=== PATIENT | female | born 1930 | race Caucasian/White ===

== ENCOUNTER 2019-10-04 20:03 | Inpatient (IN) | payer MEDICARE, MEDICAID ==
[2019-10-04 21:00] LABS: Lactic Acid 1.8 mmol/L (0.5-2.2)
[2019-10-04] MEDS ORDERED: Ondansetron PF 4 MG/2 ML Vial IVP PRN (21:24)
[2019-10-04] MEDS ORDERED: Acetaminophen 325 MG TAB PO PRN (21:24)
[2019-10-04] MEDS ORDERED: Ondansetron ODT 4 MG TAB PO PRN (21:24)
[2019-10-04] MEDS ORDERED: Baclofen 10 MG TAB PO PRN (21:27)
[2019-10-04] MEDS ORDERED: HumaLOG 300 UNITS/3 ML VIAL SC PRN (21:29)
[2019-10-04] MEDS ORDERED: Dextrose 50% Abboject 50 ML SYRINGE SLOW IVP PRN (21:29)
[2019-10-04] MEDS ORDERED: Dextrose 5% in Water 1,000 ML IV PRN (21:29)
[2019-10-04 22:05] VITALS: BMI 27.7
--- NOTE | 2019-10-04 22:15 | HP ---
CHIEF COMPLAINT: Altered mental status. HISTORY OF PRESENT ILLNESS: This patient is an 89-year-old female, who has a history of CVA with left-sided hemiplegia and aphasia, who apparently was difficult to awaken at the [facility] from when she came. The patient was ultimately able to be fully awakened and was at her baseline mental status, however, she was referred to the emergency department for further evaluation. The patient is unable to give any additional history. Her n.p.o. aid, Andreea Gonzalez, was here and confirmed the patient is DNAR and paperwork was signed and confirmed that the patient is at her usual mental status presently. All information is being obtained from the patient record as the patient is unable to give any additional history. The patient was initially presented to the [facility] and was transferred here due to lack of bed capacity there. The workup was indicative of urinary tract infection. The patient does have a chronic indwelling Bonilla catheter. REVIEW OF SYSTEMS: Unobtainable. PAST MEDICAL HISTORY: Notable for asthma, dementia, history of the above-mentioned CVA with left hemiplegia, depression, diabetes mellitus type 2, GERD, hypertension. She appears to have hyperlipidemia based on her medications as well. Peripheral vascular disease, dysphagia, and aphasia. PAST SURGICAL HISTORY: Left mastectomy. SOCIAL HISTORY: The patient's n.p.o. apparently told the ER that she has no history of tobacco abuse. She is not present currently to confirm. ALLERGIES: NONE. CURRENT MEDICATIONS: 1. Atorvastatin 10 mg p.o. daily. 2. Glipizide 5 mg daily. 3. Baclofen 10 mg, regimen not known. 4. Metoprolol 25 mg at bedtime. 5. Famotidine 10 mg apparently daily, but that cannot be confirmed on this record either. PHYSICAL EXAMINATION: VITAL SIGNS: Currently BP 141/66, pulse 88, temperature 98.2, O2 saturation 99% on room air. GENERAL: The patient is awake and alert. She makes eye contact and is tracking. Otherwise, she is sitting essentially rubbing her chin with her right index finger rhythmically, but has no other involuntary movement and does not cooperate with the exam, but does not resist exam either. HEENT: Pupils are equal and reactive. She will not open her mouth for exam. NECK: Supple and symmetric. HEART: Regular rate and rhythm without murmurs, gallops, or rubs. LUNGS: Clear to auscultation bilaterally. ABDOMEN: Soft, nontender, and nondistended. Positive bowel sounds. No masses. No organomegaly. EXTREMITIES: No cyanosis, clubbing, or edema. NEUROLOGICAL: She does appear to be more flaccid on her left side. She is moving her right upper extremity deliberately involuntarily. PSYCH: Cannot be further assessed. Of note, the patient does have indwelling Bonilla catheter. Review of the patient's vital signs from the emergency department did indicate a temperature of 100.0. Note, the patient's nurse here did indicate she had a stage III decubitus in the sacral area. This was not specifically examined by me at this time. It appears that there is a 1 cm open area over the coccyx documented in the emergency department. Her EKG per the ER record shows sinus rhythm with ventricular rate of 84 beats per minute, some nonspecific ST abnormalities that were not concerning for ischemic changes. LABORATORY DATA: White count 13.2, hemoglobin 12.0, and platelets 315. CMP; sodium 140, potassium 4.4, chloride 105, CO2 of 27, anion gap 12, glucose 204, BUN 18, creatinine 0.9, GFR 63, total protein 7.1, albumin 2.5, calcium 8.9, total bilirubin 0.2, AST 21, ALT 26, alkaline phosphatase 98. CK 39, CK-MB 0.5, troponin less than 0.017. Urinalysis shows urine that was cloudy, some blood present, some protein present, leukocyte esterase positive, 31-50 red cells, 31-50 white cells, with 6-10 squamous epithelia and 3+ bacteria. Lactic acid was 2.3. Flu screen negative. Chest x-ray is negative. HOSPITAL COURSE: The patient received a liter of fluids and a dose of Levaquin, and was transferred to this facility. IMPRESSION AND PLAN: 1. Urinary tract infection in a debilitated patient with chronic indwelling Bonilla catheter. The patient has some evidence of urinary tract infection in her urine, but that is likely chronic. She has a minimally elevated white blood cell count and low-grade fever without other obvious source of infection. Therefore, this certainly may represent true infection. She received a dose of Levaquin at the other facility and has Rocephin hanging now, as well as vancomycin dose pending. Unclear to me where those orders were initiated, but suspect that might have occurred when she arrived to the emergency department here, although again not able to confirm that. She will continue to receive Rocephin and will follow up on the urine cultures from the [facility]. 2. History of cerebrovascular accident with aphasia, left-sided weakness, and dysphagia. We will give her modified diet based on previous orders with thickened liquids and pureed foods. 3. Diabetes mellitus. Accu-Cheks, sliding scale, diabetic diet. Resume her glipizide. 4. Hypertension. Continue metoprolol. 5. Hyperlipidemia. Continue atorvastatin. 6. Sacral decubitus, stage III. Wound care team consult. Reviewing the record, there is a sheet from the [facility] indicating that was a diagnosis for her from there as well. 7. Chronic dementia, stable. 8. The patient is DNAR with paperwork completed. Job ID: [id number]
[2019-10-04] MEDS: cefTRIAXone\\ROCEPHIN 1 GM in Sodium Chloride 0.9% 100 ML IVPB SCH (22:32)
[2019-10-04] MEDS: Sodium Chloride 0.9% 1,000 ML IV SCH (22:32)
[2019-10-05 06:08] LABS: #Basophils 0.1 thou/uL (0.0-0.2); #Eosinphils 0.3 thou/uL (0.0-0.7); #Lymphocytes 3.1 thou/uL (1.20-3.40); #Monocytes 0.8 thou/uL (0.11-0.59); %Basophils 0.7 % (0.0-1.0); %Eosinophils 2.3 % (0.0-10.0); %Lymphocytes 25.4 % (21.0-51.0); %Monocytes 6.5 % (0.0-10.0); %Neutrophils 65.1 % (42.0-75.0); Hemoglobin 11.8 g/dL (12.0-16.0); Mean Corpuscular Hemoglobin 29.4 pg (27.0-31.0); Mean Platelet Volume 7.2 fL (7.4-10.4); Platelet Count 294 thou/uL (130-400); RBC Distribution Width 13.6 % (11.5-14.5); White Blood Cell (WBC) Count 12.3 thou/uL (4.8-10.8)
[2019-10-05 06:27] LABS: Anion Gap 12 mmol/L (10-20); BUN (Urea Nitrogen) 11 mg/dL (9.8-20.1); Calc. Creatinine Clearance 74 mL/min (70-130); Calcium 8.6 mg/dL (7.8-10.44); Carbon Dioxide 27 mmol/L (23-31); Chloride 107 mmol/L (98-107); Estimated GFR-MDRD 83; Glucose 99 mg/dL (83-110); Potassium 4.1 mmol/L (3.5-5.1); Sodium 142 mmol/L (136-145)
[2019-10-05] MEDS: Enoxaparin Sodium 40 MG/0.4 ML SYRINGE SC SCH (08:33)
[2019-10-05] MEDS: Famotidine 20 MG TAB PO SCH (08:33)
[2019-10-05] MEDS: Sodium Chloride 0.9% 1,000 ML IV SCH ×2 (08:45→22:49)
--- NOTE | 2019-10-05 19:15 | PDOC.HOSPP ---
- Subjective Encounter Date: 10/05/19 Encounter Time: 19:05 Subjective: f/u for AMS, UTI on Rocephin. Apparently dementia at baseline residing at [facility]. No new issues reported. - Objective Vital Signs & Weight: Vital Signs (12 hours) Temp Pulse Resp BP Pulse Ox 10/05/19 16:00 98.6 F 91 20 163/70 H 96 10/05/19 08:00 98.2 F 85 18 152/78 H 97 Weight Weight 182 lb 8 oz I&O: 10/04/19 10/05/19 10/06/19 06:59 06:59 06:59 Intake Total 1900 Output Total 750 2000 Balance -750 -100 Result Diagrams: 10/05/19 05:59 10/05/19 05:59 Additional Labs: Accuchecks 10/05/19 10/05/19 16:33 12:02 POC Glucose 180 H 130 H Hospitalist ROS - Medication Medications: Active Medications Generic Name Dose Route Start Last Admin Trade Name Freq PRN Reason Stop Dose Admin Enoxaparin Sodium 40 mg 10/05/19 09:00 10/05/19 08:33 Lovenox SC 40 mg 0900 DAMIAN Administration Famotidine 20 mg 10/05/19 09:00 10/05/19 08:33 Pepcid PO 20 mg DAILY DAMIAN Administration Glipizide 5 mg 10/05/19 08:00 10/05/19 08:34 Glucotrol Xl PO 5 mg QAM-WM DAMIAN Administration Sodium Chloride 1,000 mls @ 75 mls/hr 10/04/19 22:30 10/05/19 08:45 Normal Saline 0.9% IV 1,000 mls .[id number] DAMIAN Administration Ceftriaxone Sodium 1 gm/ 100 mls @ 200 mls/hr 10/04/19 23:00 10/04/19 22:32 Sodium Chloride IVPB 100 mls 2300 DAMIAN Administration - Exam General Appearance: NAD General - other findings: mumbles one, two words, stares out the window Eye: PERRL, anicteric sclera ENT: normocephalic atraumatic, no oropharyngeal lesions Neck: supple, symmetric, no JVD, no thyromegaly Heart: RRR, no murmur, no gallops, no rubs Respiratory: CTAB, no wheezes, no rales, no ronchi Gastrointestinal: soft, non-tender, non-distended, normal bowel sounds Extremities: no cyanosis, no clubbing, no edema Skin: normal turgor, no lesions Neurological: no new deficit Neurological - other findings: resting tremor R hand Musculoskeletal: generalized weakness Psychiatric: oriented to person, flat affect Hosp A/P (1) UTI (urinary tract infection) Status: Acute Plan: Continue Rocephin, await sasha Ucx result, continue IVF's (2) Acute metabolic encephalopathy Code(s): G93.41 - METABOLIC ENCEPHALOPATHY Status: Acute Plan: Likely due to #1, appears near baseline mental status (3) Chronic indwelling Bonilla catheter Code(s): Z96.0 - PRESENCE OF UROGENITAL IMPLANTS Status: Chronic Plan: Likely UTI due to indwelling catheter, await final Ucx results (4) DM II (diabetes mellitus, type II), controlled Code(s): E11.9 - TYPE 2 DIABETES MELLITUS WITHOUT COMPLICATIONS Status: Chronic Plan: Resume home DM regimen, serial accuchecks (5) Sacral decubitus ulcer, stage III Code(s): L89.153 - PRESSURE ULCER OF SACRAL REGION, STAGE 3 Status: Chronic Plan: Present prior to admission, WCT, turning protocol, local care - Plan continue antibiotics, social media strategist, speech therapy, DVT proph w/SCDs Stable currently continue Rocephin daily Continue IVF's Await final Ucx results AM lab: BMP, CBC
[2019-10-05] MEDS: Baclofen 10 MG TAB PO SCH (20:32)
[2019-10-05] MEDS: Metoprolol Tartrate 25 MG TAB PO SCH (20:32)
[2019-10-05] MEDS ORDERED: Atorvastatin Calcium 10 MG TAB PO SCH (21:00)
[2019-10-05] MEDS: cefTRIAXone\\ROCEPHIN 1 GM in Sodium Chloride 0.9% 100 ML IVPB SCH (22:43)
[2019-10-06 06:29] LABS: Band 9 % (5-11); Hemoglobin 11.8 g/dL (12.0-16.0); Lymphocytes 25 % (21-51); MDiff Complete? YES; Mean Corpuscular HGB CONC 32.5 g/dL (32.0-36.0); Mean Corpuscular Hemoglobin 28.5 pg (27.0-31.0); Mean Corpuscular Volume 87.7 fL (78.0-98.0); Mean Platelet Volume 7.1 fL (7.4-10.4); Monocytes 1 % (0-10); Neutrophil 65 % (42-75); Platelet Count 305 thou/uL (130-400); RBC Distribution Width 13.6 % (11.5-14.5); Red Blood Cell (RBC) Count 4.14 mill/uL (4.20-5.40); White Blood Cell (WBC) Count 11.5 thou/uL (4.8-10.8)
[2019-10-06 06:39] LABS: Anion Gap 12 mmol/L (10-20); BUN (Urea Nitrogen) 8 mg/dL (9.8-20.1); Calc. Creatinine Clearance 77 mL/min (70-130); Calcium 8.5 mg/dL (7.8-10.44); Carbon Dioxide 25 mmol/L (23-31); Chloride 104 mmol/L (98-107); Estimated GFR-MDRD 86; Glucose 133 mg/dL (83-110); Potassium 4.3 mmol/L (3.5-5.1); Sodium 137 mmol/L (136-145)
[2019-10-06] MEDS: Atorvastatin Calcium 10 MG TAB PO SCH (08:53)
[2019-10-06] MEDS: Metoprolol Tartrate 25 MG TAB PO SCH ×2 (08:54→20:42)
[2019-10-06] MEDS: Famotidine 20 MG TAB PO SCH (08:54)
[2019-10-06] MEDS: Baclofen 10 MG TAB PO SCH ×3 (08:54→20:42)
[2019-10-06] MEDS: Enoxaparin Sodium 40 MG/0.4 ML SYRINGE SC SCH (08:55)
[2019-10-06] MEDS: Sodium Chloride 0.9% 1,000 ML IV SCH (09:01)
[2019-10-06] MEDS: Vancomycin HCl 1 GM in Premix Bag 1 BAG IVPB SCH ×2 (10:55→23:46)
--- NOTE | 2019-10-06 11:23 | PDOC.HOSPP ---
- Subjective Encounter Date: 10/06/19 Encounter Time: 11:15 Subjective: f/u for AMS, UTI and gm+ cocci in 2/2 blood cx. Receiving Rocephin currently. No new changes reported per nursing. - Objective Vital Signs & Weight: Vital Signs (12 hours) Temp Pulse Resp BP Pulse Ox 10/06/19 08:11 98.0 F 76 18 145/70 H 99 Weight Weight 182 lb 8 oz I&O: 10/05/19 10/06/19 10/07/19 06:59 06:59 06:59 Intake Total 1900 Output Total 750 2000 Balance -750 -100 Result Diagrams: 10/06/19 06:08 10/06/19 06:08 Additional Labs: Accuchecks 10/06/19 10/05/19 10/05/19 04:16 20:53 16:33 POC Glucose 143 H 176 H 180 H 10/05/19 12:02 POC Glucose 130 H Hospitalist ROS - Medication Medications: Active Medications Generic Name Dose Route Start Last Admin Trade Name Freq PRN Reason Stop Dose Admin Atorvastatin Calcium 10 mg 10/06/19 09:00 10/06/19 08:53 Lipitor PO 10 mg DAILY DAMIAN Administration Baclofen 10 mg 10/05/19 21:00 10/06/19 08:54 Lioresal PO 10 mg TID DAMIAN Administration Enoxaparin Sodium 40 mg 10/05/19 09:00 10/06/19 08:55 Lovenox SC 40 mg 0900 DAMIAN Administration Famotidine 20 mg 10/05/19 09:00 10/06/19 08:54 Pepcid PO 20 mg DAILY DAMIAN Administration Glipizide 5 mg 10/05/19 08:00 10/06/19 09:01 Glucotrol Xl PO 5 mg QAM-WM DAMIAN Administration Sodium Chloride 1,000 mls @ 75 mls/hr 10/04/19 22:30 10/06/19 09:01 Normal Saline 0.9% IV 1,000 mls .[id number] DAMIAN Administration Ceftriaxone Sodium 1 gm/ 100 mls @ 200 mls/hr 10/04/19 23:00 10/05/19 22:43 Sodium Chloride IVPB 100 mls 2300 DAMIAN Administration Vancomycin HCl 1 gm/ Device 200 mls @ 200 mls/hr 10/06/19 11:00 10/06/19 10: 55 IVPB 200 mls 1100,2300 DAMIAN Administration Metoprolol Tartrate 25 mg 10/05/19 21:00 10/06/19 08:54 Lopressor PO 25 mg BID DAMIAN Administration - Exam General Appearance: awake alert General - other findings: nods head to questions, non-verbal Eye: PERRL, anicteric sclera ENT: normocephalic atraumatic, no oropharyngeal lesions Neck: supple, symmetric, no JVD, no thyromegaly Heart: RRR, no murmur, no gallops, no rubs, normal peripheral pulses Respiratory: CTAB, no wheezes, no rales, no ronchi Gastrointestinal: soft, non-tender, non-distended, normal bowel sounds Extremities: no cyanosis, no clubbing, no edema Skin: normal turgor, no lesions Neurological: no new deficit Musculoskeletal: generalized weakness Psychiatric: oriented to person Hosp A/P (1) UTI (urinary tract infection) Status: Acute Plan: Suspected, continue Rocephin, await final Ucx results (2) Bacteremia due to Gram-positive bacteria Code(s): R78.81 - BACTEREMIA Status: Acute Plan: Await final identification, add Vancomycin 1gm IV q12h (3) Acute metabolic encephalopathy Code(s): G93.41 - METABOLIC ENCEPHALOPATHY Status: Acute Plan: ? baseline, continue to follow with tx outlined above (4) Chronic indwelling Bonilla catheter Code(s): Z96.0 - PRESENCE OF UROGENITAL IMPLANTS Status: Chronic (5) DM II (diabetes mellitus, type II), controlled Code(s): E11.9 - TYPE 2 DIABETES MELLITUS WITHOUT COMPLICATIONS Status: Chronic Plan: ISS, continue Glipizide, ADA (6) Sacral decubitus ulcer, stage III Code(s): L89.153 - PRESSURE ULCER OF SACRAL REGION, STAGE 3 Status: Chronic Plan: WCT, local care, turning protocol - Plan continue antibiotics, addiction social worker, DVT proph w/SCDs Stable currently continue Rocephin daily Add Vancomycin 1gm IV q12h Await final Ucx/Blood cx results(from [facility]) Continue IVF's WCT with local care Code Status: DNAR
[2019-10-06] MEDS: cefTRIAXone\\ROCEPHIN 1 GM in Sodium Chloride 0.9% 100 ML IVPB SCH (22:29)
[2019-10-07] MEDS: Sodium Chloride 0.9% 1,000 ML IV SCH ×3 (05:24→23:49)
[2019-10-07] MEDS: Atorvastatin Calcium 10 MG TAB PO SCH (08:29)
[2019-10-07] MEDS: Baclofen 10 MG TAB PO SCH ×3 (08:29→20:02)
[2019-10-07] MEDS: Metoprolol Tartrate 25 MG TAB PO SCH ×2 (08:29→20:02)
[2019-10-07] MEDS: Famotidine 20 MG TAB PO SCH (08:29)
[2019-10-07] MEDS: Vancomycin HCl 1 GM in Premix Bag 1 BAG IVPB SCH ×2 (08:30→23:48)
[2019-10-07] MEDS: Enoxaparin Sodium 40 MG/0.4 ML SYRINGE SC SCH (08:30)
--- NOTE | 2019-10-07 13:11 | PDOC.HOSPP ---
- Subjective Encounter Date: 10/07/19 Encounter Time: 12:15 Subjective: Expresses no complaint.. feels better. - Objective Vital Signs & Weight: Vital Signs (12 hours) Temp Pulse Resp BP Pulse Ox 10/07/19 07:58 98 F 98 20 147/78 H 95 Weight Admit Weight 182 lb 8 oz Weight 182 lb 8 oz I&O: 10/06/19 10/07/19 10/08/19 06:59 06:59 06:59 Intake Total 1900 1200 Output Total 1999 4500 Balance -100 -3300 Result Diagrams: 10/06/19 06:08 10/06/19 06:08 Additional Labs: Accuchecks 10/07/19 10/07/19 10/06/19 11:59 05:47 20:59 POC Glucose 170 H 160 H 202 H 10/06/19 15:57 POC Glucose 153 H Hospitalist ROS - Medication Medications: Active Medications Generic Name Dose Route Start Last Admin Trade Name Freq PRN Reason Stop Dose Admin Atorvastatin Calcium 10 mg 10/06/19 09:00 10/07/19 08:29 Lipitor PO 10 mg DAILY DAMIAN Administration Baclofen 10 mg 10/05/19 21:00 10/07/19 08:29 Lioresal PO 10 mg TID DAMIAN Administration Enoxaparin Sodium 40 mg 10/05/19 09:00 10/07/19 08:30 Lovenox SC 40 mg 0900 DAMIAN Administration Famotidine 20 mg 10/05/19 09:00 10/07/19 08:29 Pepcid PO 20 mg DAILY DAMIAN Administration Glipizide 5 mg 10/05/19 08:00 10/07/19 08:30 Glucotrol Xl PO 5 mg QAM-WM DAMIAN Administration Sodium Chloride 1,000 mls @ 75 mls/hr 10/04/19 22:30 10/07/19 08:33 Normal Saline 0.9% IV 1,000 mls .[id number] DAMIAN Administration Ceftriaxone Sodium 1 gm/ 100 mls @ 200 mls/hr 10/04/19 23:00 10/06/19 22:29 Sodium Chloride IVPB 100 mls 2300 DAMIAN Administration Vancomycin HCl 1 gm/ Device 200 mls @ 200 mls/hr 10/06/19 11:00 10/07/19 08: 30 IVPB 200 mls 1100,2300 DAMIAN Administration Metoprolol Tartrate 25 mg 10/05/19 21:00 10/07/19 08:29 Lopressor PO 25 mg BID DAMIAN Administration - Exam Neck: no JVD Heart: RRR Respiratory: CTAB Gastrointestinal: soft Extremities: no edema Neurological: no weakness Psychiatric: normal affect Hosp A/P (1) Bacteremia due to Gram-positive bacteria Code(s): R78.81 - BACTEREMIA Status: Acute Plan: Coagulase negative Staph.. ?contamiation.. Get ID input. (2) UTI (urinary tract infection) Status: Acute (3) Chronic indwelling Bonilla catheter Code(s): Z96.0 - PRESENCE OF UROGENITAL IMPLANTS Status: Chronic (4) DM II (diabetes mellitus, type II), controlled Code(s): E11.9 - TYPE 2 DIABETES MELLITUS WITHOUT COMPLICATIONS Status: Chronic (5) Sacral decubitus ulcer, stage III Code(s): L89.153 - PRESSURE ULCER OF SACRAL REGION, STAGE 3 Status: Chronic - Plan ID to evaluate. Continue antibiotics, wound care.
[2019-10-07] MEDS: cefTRIAXone\\ROCEPHIN 1 GM in Sodium Chloride 0.9% 100 ML IVPB SCH (22:24)
[2019-10-07 23:01] LABS: Vancomycin, Trough 17.1 ug/mL
[2019-10-08] MEDS: Famotidine 20 MG TAB PO SCH (08:11)
[2019-10-08] MEDS: Baclofen 10 MG TAB PO SCH ×3 (08:11→21:15)
[2019-10-08] MEDS: Atorvastatin Calcium 10 MG TAB PO SCH (08:11)
[2019-10-08] MEDS: Enoxaparin Sodium 40 MG/0.4 ML SYRINGE SC SCH (08:11)
[2019-10-08] MEDS: Metoprolol Tartrate 25 MG TAB PO SCH ×2 (08:11→21:16)
[2019-10-08] MEDS: Vancomycin HCl 1 GM in Premix Bag 1 BAG IVPB SCH (11:01)
--- NOTE | 2019-10-08 12:54 | PDOC.HOSPP ---
- Subjective Encounter Date: 10/08/19 Encounter Time: 12:00 Subjective: No new complaint.. - Objective Vital Signs & Weight: Vital Signs (12 hours) Temp Pulse Resp BP Pulse Ox 10/08/19 08:00 96 10/08/19 07:44 98.1 F 74 14 165/75 H 96 Weight Admit Weight 182 lb 8 oz Weight 182 lb 8 oz I&O: 10/07/19 10/08/19 10/09/19 06:59 06:59 06:59 Intake Total 1200 1200 Output Total 4500 1900 Balance -3300 -700 Result Diagrams: 10/06/19 06:08 10/06/19 06:08 Additional Labs: Accuchecks 10/08/19 10/08/19 10/07/19 11:09 06:10 22:45 POC Glucose 134 H 152 H 194 H 10/07/19 16:41 POC Glucose 213 H Hospitalist ROS - Medication Medications: Active Medications Generic Name Dose Route Start Last Admin Trade Name Freq PRN Reason Stop Dose Admin Atorvastatin Calcium 10 mg 10/06/19 09:00 10/08/19 08:11 Lipitor PO 10 mg DAILY DAMIAN Administration Baclofen 10 mg 10/05/19 21:00 10/08/19 08:11 Lioresal PO 10 mg TID DAMIAN Administration Enoxaparin Sodium 40 mg 10/05/19 09:00 10/08/19 08:11 Lovenox SC 40 mg 0900 DAMIAN Administration Famotidine 20 mg 10/05/19 09:00 10/08/19 08:11 Pepcid PO 20 mg DAILY DAMIAN Administration Glipizide 5 mg 10/05/19 08:00 10/08/19 08:10 Glucotrol Xl PO 5 mg QAM-WM DAMIAN Administration Sodium Chloride 1,000 mls @ 75 mls/hr 10/04/19 22:30 10/07/19 23:49 Normal Saline 0.9% IV 1,000 mls .[id number] DAMIAN Administration Ceftriaxone Sodium 1 gm/ 100 mls @ 200 mls/hr 10/04/19 23:00 10/07/19 22:24 Sodium Chloride IVPB 100 mls 2300 DAMIAN Administration Vancomycin HCl 1 gm/ Device 200 mls @ 200 mls/hr 10/06/19 11:00 10/08/19 11: 01 IVPB 200 mls 1100,2300 DAMIAN Administration Insulin Human Lispro 0 units 10/04/19 21:29 10/07/19 17:16 Humalog SC 3 unit .MILD SLIDING SCALE PRN Administration Mild Correctional Scale Metoprolol Tartrate 25 mg 10/05/19 21:00 10/08/19 08:11 Lopressor PO 25 mg BID DAMIAN Administration - Exam General Appearance: NAD Eye: anicteric sclera Neck: no JVD Heart: RRR Respiratory: CTAB Gastrointestinal: soft Extremities: no edema Neurological: no weakness Hosp A/P (1) Bacteremia due to Gram-positive bacteria Code(s): R78.81 - BACTEREMIA Status: Acute Plan: With coagulase negative staph.. ?contamination. ID to see. (2) UTI (urinary tract infection) Status: Acute Plan: On antibiotics.. (3) Chronic indwelling Bonilla catheter Code(s): Z96.0 - PRESENCE OF UROGENITAL IMPLANTS Status: Chronic (4) DM II (diabetes mellitus, type II), controlled Code(s): E11.9 - TYPE 2 DIABETES MELLITUS WITHOUT COMPLICATIONS Status: Chronic Plan: BS satisfactory.. (5) Sacral decubitus ulcer, stage III Code(s): L89.153 - PRESSURE ULCER OF SACRAL REGION, STAGE 3 Status: Chronic Plan: Wound care.. - Plan Continue antibiotics, wound care. ID to evaluate regarding coagulase negative staph bacteremia.. Continue current therapy.
[2019-10-08] MEDS: Sodium Chloride 0.9% 1,000 ML IV SCH (21:14)
--- NOTE | 2019-10-08 21:27 | CON ---
DATE OF CONSULTATION: 10/08/2019 REASON FOR CONSULTATION: Evaluate the meaning of blood culture results. HISTORY OF PRESENT ILLNESS: An 89-year-old, history of dementia, most likely vascular dementia with chronic left hemiplegia following CVA, type 2 diabetes, hypertension, who is a [facility] at a local [facility] and was transferred over here because of altered mental status. Specifically, she was hard to awaken at [facility]. Eventually, she recovered her mental state and was admitted. Initial findings, BP 140/60, pulse 88, temperature 98.2. She made eye contact and had a dense left hemiplegia. Overall exam was otherwise not particularly remarkable. Initial findings included a white cell count of 11.5, hemoglobin 11.8, platelets 305 with a normal differential and glucose 133. Sodium 137, creatinine 0.65. The patient had urine submitted with positive for Enterococcus faecalis. I do not see a urinalysis submitted though. There is one set of blood cultures with coagulase negative Staphylococcus. Currently, Ms. Walker is awake. She will follow some commands after some insistence. Her review of systems is quite limited because of her cognitive dysfunction. She has not had diarrhea. No evidence of aspiration and she has indwelling Bonilla catheter which was inserted on admission. PAST MEDICAL HISTORY: Asthma, vascular dementia, prior CVA with dense left hemiplegia, type 2 diabetes, GERD, hypertension. PAST SURGICAL HISTORY: Mastectomy. SOCIAL HISTORY: She is a resident at [facility]. ALLERGIES: NONE. CURRENT MEDICATIONS: 1. Tylenol. 2. Lipitor. 4. Ceftriaxone. 5. Lovenox. 6. Pepcid. 7. Glucotrol. 8. Insulin. 9. Lopressor. 10. Zofran. 11. Vancomycin. PHYSICAL EXAMINATION: GENERAL: She has been afebrile throughout the hospital stay. There is a little bit of erythema in the distal left hallux skin with onychodystrophy, possible onychomycosis and there is a stage II area of ulceration of surrounding erythema in the left presacral region. She has a peripheral IV access and has a Bonilla catheter in place. HEENT: She will briefly establish eye contact, but for the most part, not much interaction with the examiner. No lymphadenopathy. The sclerae are white. Pupils are constricted. Oral cavity with no [place] teeth remaining, somewhat dry oral mucosa. No lesions. No jugular vein distention. LUNGS: With symmetric clear breath sounds. HEART: S1, S2. Regular rate. No S3 or S4. ABDOMEN: Soft without distention. No guarding. No organomegaly. 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 NEUROLOGIC: Dense left hemiplegia with contractures. She is able to move the right side. Plantar responses are flexor on the right and different on the left. No clonus. She is awake, but will answer in brief, with monosyllabic answers to questions, very limited ability to interact. Unable to answer in more complete sentences about her past medical history or other details of her history. LABORATORY DATA: Has been reviewed above. She has one set of blood cultures with coagulase negative Staphylococcus other than Staph epidermidis and lugdunensis by oneDrumigene nucleic acid test. ASSESSMENT: Type 2 diabetes, prior cerebrovascular accident, vascular dementia, left hemiparesis, reported change in mental state, which led to admission and one set of blood cultures positive for coagulase-negative Staphylococcus. DISCUSSION: The results of the blood cultures reflect contamination of the sample rather than a true bacteremia and therefore I would advise against treating this finding. Typically, those cultures were obtained in the emergency room and usually one set positive. In patients without devices, the vast majority of those blood cultures are considered to be a contaminant and do not merit treatment. Job ID: [id number] MTDD
[2019-10-09] MEDS: Sodium Chloride 0.9% 1,000 ML IV SCH (05:31)
[2019-10-09] MEDS: Enoxaparin Sodium 40 MG/0.4 ML SYRINGE SC SCH (08:47)
[2019-10-09] MEDS: Metoprolol Tartrate 25 MG TAB PO SCH ×2 (08:47→21:42)
[2019-10-09] MEDS: Atorvastatin Calcium 10 MG TAB PO SCH (08:47)
[2019-10-09] MEDS: Baclofen 10 MG TAB PO SCH ×3 (08:47→21:42)
[2019-10-09] MEDS: Famotidine 20 MG TAB PO SCH (08:47)
--- NOTE | 2019-10-09 12:13 | PDOC.HOSPP ---
- Subjective Encounter Date: 10/09/19 Encounter Time: 11:00 Subjective: Expresses no complaint. - Objective Vital Signs & Weight: Vital Signs (12 hours) Temp Pulse Resp BP Pulse Ox 10/09/19 08:00 97.7 F 68 20 155/71 H 95 Weight Admit Weight 182 lb 8 oz Weight 182 lb 8 oz I&O: 10/08/19 10/09/19 10/10/19 06:59 06:59 06:59 Intake Total 1200 2450 Output Total 1900 1975 Balance -700 475 Result Diagrams: 10/06/19 06:08 10/06/19 06:08 Additional Labs: Accuchecks 10/09/19 10/09/19 10/08/19 11:44 05:16 21:07 POC Glucose 175 H 135 H 258 H 10/08/19 16:22 POC Glucose 158 H Hospitalist ROS - Medication Medications: Active Medications Generic Name Dose Route Start Last Admin Trade Name Freq PRN Reason Stop Dose Admin Atorvastatin Calcium 10 mg 10/06/19 09:00 10/09/19 08:47 Lipitor PO 10 mg DAILY DAMIAN Administration Baclofen 10 mg 10/05/19 21:00 10/09/19 08:47 Lioresal PO 10 mg TID DAMIAN Administration Enoxaparin Sodium 40 mg 10/05/19 09:00 10/09/19 08:47 Lovenox SC 40 mg 0900 DAMIAN Administration Famotidine 20 mg 10/05/19 09:00 10/09/19 08:47 Pepcid PO 20 mg DAILY DAMIAN Administration Glipizide 5 mg 10/05/19 08:00 10/09/19 08:47 Glucotrol Xl PO 5 mg QAM-WM DAMIAN Administration Sodium Chloride 1,000 mls @ 75 mls/hr 10/04/19 22:30 10/09/19 05:31 Normal Saline 0.9% IV 1,000 mls .[id number] DAMIAN Administration Insulin Human Lispro 0 units 10/04/19 21:29 10/07/19 17:16 Humalog SC 3 unit .MILD SLIDING SCALE PRN Administration Mild Correctional Scale Metoprolol Tartrate 25 mg 10/05/19 21:00 10/09/19 08:47 Lopressor PO 25 mg BID DAMIAN Administration - Exam Neck: no JVD Heart: RRR Respiratory: CTAB Gastrointestinal: soft Extremities: no edema Hosp A/P (1) Bacteremia due to Gram-positive bacteria Code(s): R78.81 - BACTEREMIA Status: Acute Plan: Due to contamination... (2) UTI (urinary tract infection) Status: Acute (3) Chronic indwelling Bonilla catheter Code(s): Z96.0 - PRESENCE OF UROGENITAL IMPLANTS Status: Chronic (4) DM II (diabetes mellitus, type II), controlled Code(s): E11.9 - TYPE 2 DIABETES MELLITUS WITHOUT COMPLICATIONS Status: Chronic (5) Sacral decubitus ulcer, stage III Code(s): L89.153 - PRESSURE ULCER OF SACRAL REGION, STAGE 3 Status: Chronic - Plan Continue antibiotics for UTI.., Continue wound care. Coagulase negative staph bacteremia due to contamination... Continue current therapy. Possible discharge soon..
[2019-10-10] MEDS: Sodium Chloride 0.9% 1,000 ML IV SCH (05:35)
[2019-10-10 07:57] VITALS: BP 146/74; TEMP 97
[2019-10-10] MEDS: Atorvastatin Calcium 10 MG TAB PO SCH (08:50)
[2019-10-10] MEDS: Famotidine 20 MG TAB PO SCH (08:51)
[2019-10-10] MEDS: Baclofen 10 MG TAB PO SCH ×2 (08:51→16:28)
[2019-10-10] MEDS: Enoxaparin Sodium 40 MG/0.4 ML SYRINGE SC SCH (08:51)
[2019-10-10] MEDS: Metoprolol Tartrate 25 MG TAB PO SCH (08:51)
--- NOTE | 2019-10-14 05:24 | PQF ---
RUBINRAUL STANLEY WHITE MD [id number] CLINICAL DOCUMENTATION CLARIFICATION FORM: POST DISCHARGE Addendum to original discharge summary date: ____ Late entry note date: __ DATE: 10/14/2018 ATTN:STANLEY SILVA MD Please exercise your independent, professional judgment in responding to the clarification form. Clinical indicators are provided on the bottom of this form for your review Please check appropriate box(s): [ ] UTI due to Chronic indwelling catheter [ ] UTI not due to Chronic indwelling catheter [ x ] Other diagnosis Non-infectious Bacteriuria [ ] Unable to determine CLINICAL INDICATORS - SIGNS / SYMPTOMS / LABS - Urinary tract infection --H&P, 10/04, STANLEY SILVA MD - Likely UTI due to indwelling catheter- Hospital PN, 10/05, Tee Kellogg DO - The patient does have a chronic indwelling Bonilla catheter--H&P, 10/04, STANLEY SILVA MD - Bacteremia due to gram positive bacteria- due to contamination- Hospital PN, 10/09, Tee Kellogg DO - WBC: 12.3H-10/05, 11.5H-10/06- Laboratory report RISK FACTORS - Hx of CVA with hemiplegia-H&P, 10/04, STANLEY SILVA MD - Sacral decubitus ulcer stage III--H&P, 10/04, STANLEY SILVA MD - Acute metabolic encephalopathy- Hospital PN, 10/05, Tee Kellogg DO TREATMENT: - Rocephin.IV- MAR, 10/04 to 10/08 (This form is maintained as a part of the permanent medical record) 2014 [employer]. All Rights Reserved Melecio Cox [not provided] [not provided] [email or web address]
== END 2019-10-10 17:02 | DRG 695 ==
LOC: T4-B 20:03
PROVIDERS: ADMIT Emergency Medicine; ATTEND Emergency Medicine
DX: R82.71 Bacteriuria (principal); L89.153 Pressure ulcer of sacral region, stage 3; G93.41 Metabolic encephalopathy; R47.01 Aphasia; I69.354 Hemiplegia and hemiparesis following cerebral infarction affecting left non-dominant side; E11.51 Type 2 diabetes mellitus with diabetic peripheral angiopathy without gangrene; F03.90 Unspecified dementia, unspecified severity, without behavioral disturbance, psychotic disturbance, mood disturbance, and anxiety; F32.9 Major depressive disorder, single episode, unspecified; K21.9 Gastro-esophageal reflux disease without esophagitis; I10 Essential (primary) hypertension; M17.0 Bilateral primary osteoarthritis of knee; M19.072 Primary osteoarthritis, left ankle and foot; M19.071 Primary osteoarthritis, right ankle and foot; Y83.9 Surgical procedure, unspecified as the cause of abnormal reaction of the patient, or of later complication, without mention of misadventure at the time of the procedure; E78.5 Hyperlipidemia, unspecified; Z90.12 Acquired absence of left breast and nipple
CPT/HCPCS: 36415; 36416; 80048; 80202; 83605; 85007; 85025; 85027; J0696; J1650; J3370; J3490